=== PATIENT | female | born 1985 | race Caucasian/White ===

== ENCOUNTER 2020-12-08 14:35 | Emergency (ER) | payer BC, SELFPAY ==
[2020-12-08 15:09] VITALS: BP 111/68; PULSE 64; RESP 15; TEMP 37.1; O2SAT 99; BMI 24.0
[2020-12-08] MEDS: diphenhydrAMINE 25 mg Capsule PO (15:19)
[2020-12-08] MEDS: predniSONE 20 mg Tablet 40 MG PO (15:19)
[2020-12-08] MEDS: loratadine 10 mg Tablet PO (15:39)
--- NOTE | 2020-12-08 15:58 | W.ED.ALLEREA ---
HPI - Allergic Reaction General: Chief complaint: Allergic Reaction Stated complaint: HIVES AND HARD SWALLOW Time Seen by Provider: 12/08/20 14:41 Source: patient and family History of Present Illness: HPI narrative: 35-year-old female presents emergency department chief complaint of hives reports she gets quite stressed out and the hives developed she reports she just wrote broke up with her boyfriend which she thinks is contributing to this. MD complaint: allergic reaction and hives Onset (ago): hour(s) (3) Associated symptoms: Deny abdominal pain, facial swelling, nausea or vomiting Review of Systems General: Reports: 10 or more systems reviewed and unremarkable except in HPI and below Const: Denies: fever(s), chills, fatigue or malaise Eyes: Denies: change in vision or blurry vision Card: Denies: chest pain or palpitations Resp: Denies: dyspnea or productive cough GI: Denies: abdominal pain, nausea or vomiting : Denies: flank pain Musc: Denies: extremity pain or extremity swelling Skin/Breast: Denies: rash or pruritus Neuro: Denies: headache(s) Psych: Denies: anxiety or depression Nixon/Lymph: Denies: easy bleeding All/Imm: Denies: urticaria, throat swelling or facial swelling PFSH ED PFSH: Social History Smoking and tobacco status: former smoker Alcohol intake: current Physical Exam Narrative: EXAM NARRATIVE: Obvious urticaria apparent to the torso into the extremities no obvious respiratory difficulties noted Const: COMMON NORMALS: no acute distress, patient oriented x3 and healthy appearing HENMT: COMMON NORMALS: normocephalic and atraumatic HEAD & SCALP: normocephalic and atraumatic Eye: COMMON NORMALS: Equal, round and reactive pupils present and EOMs intact bilaterally PUPIL: Yes Equal, round and reactive pupils present Neck/C-Spine: COMMON NORMALS: full ROM, supple and no JVD Lymph: LYMPHATIC: no lymphadenopathy noted Chest: COMMONS NORMALS: normal inspection of the chest and normal palpation of entire chest wall Resp: COMMON NORMALS: normal respiratory effort, No retractions and clear to auscultation bilaterally EFFORT & INSPECTION: Yes able to speak in complete sentences and Yes symmetric chest movement AUSCULTATION: clear to auscultation bilaterally Cardio: COMMON NORMALS: no JVD, regular rate and regular rhythm RATE: regular rate RHYTHM: regular rhythm GI: COMMON NORMALS: Normal to inspection, nondistended, normoactive bowel sounds present, Soft to palpation and non-tender INSPECTION: Yes normal to inspection PALPATION: Yes Soft to palpation : COMMON NORMALS: Yes no CVA tenderness BLADDER/KIDNEY EXAM: Yes no CVA tenderness Back/Pelvis: COMMON NORMALS: no CVA tenderness Extremity: COMMON NORMALS: normal to inspection and full ROM Neuro: COMMON NORMALS: patient oriented x3, CN's II-XII intact bilaterally, moves all extremities and no focal motor deficits Psych: COMMON NORMALS: mental status grossly normal, Normal thought process present, cooperative and normal affect THOUGHT PROCESS: Normal thought process present Skin: GENERAL SKIN EXAM: other (Urticaria appreciated to the torso and the back.) Course ED course: Patient provided medications for 0 emergency department for 1 hour and a half no additional respiratory or allergic reaction symptoms were appreciated. Patient was simply discharged home advised further follow-up with a primary care doctor in 3 to 5 days which is advised to return the interim if any of her symptoms persist or worse. Vital Signs: Vital signs: Vital Signs Temperature 98.8 F 12/08/20 15:09 Pulse Rate 64 12/08/20 15:09 Respiratory Rate 15 12/08/20 15:09 Blood Pressure 111/68 12/08/20 15:09 Pulse Oximetry 99 12/08/20 15:09 Discharge Plan Discharge Patient Disposition: Home Clinical Impression: Allergic reaction, Urticaria Condition: Stable Prescriptions: New hydroxyzine HCl 25 mg tablet 25 mg PO TID PRN (Reason: itching) Qty: 30 RF: 0 prednisone 20 mg tablet 20 mg PO BID 7 Days Qty: 14 RF: 0 Discharge Orders: Discharge ED (Routine); Ordered 12/08/20 Ordered By: Paresh Banuelos Patient Instructions: Urticaria (ED), Opioid Safety Activity Restrictions/Additional Instructions: Follow-up with your primary care doctor in 2 to 3 days, take medication as prescribed and return the interim if any of her symptoms persist or worse. Coding Level of Care Code ED Casting Wheel Operator for Freya Farmer
[2020-12-08 16:53] VITALS: RESP 15; TEMP 37.1; O2SAT 99
== END 2020-12-08 16:53 | disposition home or self-care (01) ==
PROVIDERS: Emergency Provider Emergency Medicine
DX: L50.0 Allergic urticaria (principal); T78.40XA Allergy, unspecified, initial encounter; Z87.891 Personal history of nicotine dependence
CPT/HCPCS: 99283; J7512

== ENCOUNTER → 2023-05-09 10:46 | Outpatient (BNVA) | payer SELFPAY | PROVIDERS: Visit Provider Registered Nurse Neonatal Intensive Care | DX: J02.9 Acute pharyngitis, unspecified (principal) | CPT/HCPCS: 87880 ==

== ENCOUNTER 2024-06-10 09:21 | Emergency (ER) | payer OTHER, SELFPAY ==
[2024-06-10] VITALS (9 sets, daily range): BP systolic 100–125; BP diastolic 50–77; PULSE 65–85; RESP 14–17; TEMP 36.8–36.9; O2SAT 97–100; BMI 26.6
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
[2024-06-10 09:46] LABS: Basophils % 0.4 %; Eosinophils # 0.1 10^3/uL (0.0-0.8); Hematocrit 42.2 % (36-47); Lymphocytes # 1.6 10^3/uL (0.8-4.8); Lymphocytes % 23.4 %; Mean Corpuscular HGB Conc 32.9 g/dL (30-55); Mean Corpuscular Hemoglobin 29.4 pg (27-33); Mean Corpuscular Volume 89.2 fl (85-98); Mean Platelet Volume 9.3 fL (7.4-10.4); Monocytes # 0.4 10^3/uL (0.2-0.9); Monocytes % 5.1 %; Neutrophils % 69.8 %; Nucleated Red Blood Cells % 0 %; Platelet Count 179 10^3/cmm (157-399); Red Blood Count 4.73 10^6/uL (3.85-5.65); Red Cell Distribution Width 11.9 % (12.1-15.1); White Blood Count 7.02 10^3/uL (3.29-11.43)
[2024-06-10 09:56] LABS: HCG, Serum Qual Negative (Negative)
[2024-06-10 10:02] LABS: Alanine Aminotransferase 19 U/L (0-33); Albumin Level 4.4 g/dL (3.5-5.2); Alkaline Phosphatase 34 U/L (35-105); Anion Gap 14.8 (5-19); Aspartate Amino Transferase 27 U/L (0-32); Blood Urea Nitrogen 10 mg/dL (6-20); Calcium 8.8 mg/dL (8.5-10.5); Carbon Dioxide 22 mmol/L (22-29); Chloride 105 mmol/L (98-107); Globulin 2.5 g/dL (1.3-4.6); Glomerular Filtration Rate 94.2 mL/min (90-130); Glucose 116 mg/dL (65-115); Osmolality Calculated 286 mOsm/kg (285-295); Potassium 3.8 mmol/L (3.5-5.1); Sodium 138 mmol/L (136-145); Total Bilirubin 0.2 mg/dL (0.15-1.2); Total Protein 6.9 g/dL (6.6-8.7)
[2024-06-10] MEDS: iohexol 350 mg/mL 500 mL Btl (per mL) IV (10:18)
[2024-06-10 11:44] LABS: Bilirubin Urine Negative (Negative); Blood Urine Negative (Negative); Glucose Urine UA Negative (Normal); Ketones Urine Negative (Negative); Leukocyte Esterase Urine Negative (Negative); Nitrate Urine Negative (Negative); Protein Urine Negative (Negative); Urine Appearance Clear (CLEAR); Urine Color Yellow (Yellow); Urobilinogen Urine 0.2 mg/dL (Negative)
[2024-06-10 11:50] LABS: Add Urine Microscopic? YES; Bacteria Urine None Seen /hpf; Hyaline Casts Urine 0-4 /lpf; RBC Urine 0-2 /hpf (0-2); Squamous Epithelial Cell Urine 0-5 /hpf (0-5); WBC Urine 0-5 /hpf (0-5)
[2024-06-10 11:51] LABS: Specific Gravity, Urine 1.081 (1.005-1.030)
--- NOTE | 2024-06-10 14:29 | PC.NURSE ---
Pt up to bathroom. Ambulating without difficulties. Pt does report a headache and nausea. Spoke with Dr Pickett and verbal order for compazine 10mg ivp and toradol 30mg ivp given. RBVO and orders placed.
[2024-06-10] MEDS: ketorolac 30 mg/mL INJ IVP (14:36)
[2024-06-10] MEDS: prochlorperazine 10 mg/2 mL Inj IVP (14:37)
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
== END 2024-06-10 16:07 | disposition home or self-care (01) ==
PROVIDERS: Emergency Provider Family Medicine
DX: S06.0X0A Concussion without loss of consciousness, initial encounter (principal); Z87.891 Personal history of nicotine dependence; S00.412A Abrasion of left ear, initial encounter; V89.2XXA Person injured in unspecified motor-vehicle accident, traffic, initial encounter
CPT/HCPCS: 70450; 71260; 72125; 74177; 80053; 81001; 84703; 85025; 96374; 96375; 99285; J0780; J1885